=== PATIENT | male | born 1990 | race Asian ===

== ENCOUNTER 2025-07-31 09:59 | Outpatient (REF) | payer OTHER, SELFPAY ==
[2025-07-31 13:22] LABS: Appearance Urine Clear; Glucose Urine UA Negative (Negative); PH 8.0 (5.0-9.0); Specific Gravity - Urine 1.015 (1.005-1.025)
[2025-07-31 13:54] LABS: MANUAL DIFF FLAG NO
[2025-07-31 14:03] LABS: Hematocrit 37.8 % (42.0-52.0); Hemoglobin 13.3 g/dl (14.0-18.0); Imm Gran Abs Auto 0.07 X10*3/uL (0.00-0.03); Imm Gran Pct Auto 1.3 % (0.0-0.4); Lymphocytes Absolute Auto 2.4 X10*3/uL (1.2-4.9); Mean Corpuscular HGB Conc 35.2 g/dl (31.0-36.0); Mean Corpuscular Hemoglobin 32.0 pg (27.0-33.0); Mean Corpuscular Volume 90.9 fL (80.0-98.0); NRBC Abs Auto 0.000 X10*3/uL (0.0-0.012); NRBC Pct Auto 0.0 /100WBC (0.0-0.2); Platelet Count 125 X10*3/uL (160-400); Red Blood Count 4.16 X10*6/uL (4.60-5.80); White Blood Count 5.5 X10*3/uL (4.8-10.8)
[2025-07-31 14:12] LABS: Hemoglobin A1C 111.8142 umol/L
[2025-07-31 14:24] LABS: Alanine Aminotransferase 30 U/L (0-40); Albumin Level 4.5 g/dL (3.5-5.0); Alkaline Phosphatase 52 U/L (39-117); Anion Gap 8 (12-20); Aspartate Amino Transferase 29 U/L (5-37); Blood Urea Nitrogen 10 mg/dL (9-16); Calcium 9.2 mg/dL (8.4-10.2); Carbon Dioxide 30 mmol/L (22-29); Chloride 108 mmol/L (96-108); Cholesterol 172 mg/dL (<200); Estimated Glomerular Filt Rate > 60; HDL Cholesterol 42 mg/dL (>40); Potassium 4.7 mmol/L (3.3-5.1); Sodium 141 mmol/L (135-145); Total Protein 7.1 g/dL (6.5-8.0); Triglycerides 107 mg/dL (<150)
[2025-07-31 15:24] LABS: CT PCR Urine NOT DETECTED (Not Detect.); NG PCR Urine NOT DETECTED (Not Detect.)
[2025-08-02 04:58] LABS: Syphilis Screen Nonreactive (Nonreactive)
[2025-08-02 05:16] LABS: HBsAGNum1 0.43 S/CO (0.00-0.99); HIV Num 1 0.04 S/CO (0.00-0.99); Hepatitis B Surface Antigen Negative (Negative); ~HepC Num1 0.15 S/CO (0.00-0.79); ~Hepatitis B Surface Antibody REACTIVE (Nonreactive); ~Hepatitis C Antibody Nonreactive (Nonreactive)
[2025-08-06 21:13] LABS: Chlamydia Trachomatis IgA <1:16 titer (<1:16)
[2025-08-06 21:58] LABS: VITAMIN D (1,25 OH) D3 48 pg/mL; Vit D (1,25-Dihydroxy) Total 48 pg/mL (18-72); Vitamin D (1,25 OH) D2 <8 pg/mL
== END 2025-07-31 10:00 | disposition home or self-care (01) ==
LOC: HO.HKASLDS 09:59
PROVIDERS: PCP Student in an Organized Health Care Education/Training Program; Visit Provider Student in an Organized Health Care Education/Training Program
DX: Z76.89 Persons encountering health services in other specified circumstances (principal); Z13.9 Encounter for screening, unspecified; R06.83 Snoring; R07.9 Chest pain, unspecified; Z01.89 Encounter for other specified special examinations; Z71.9 Counseling, unspecified; Z13.31 Encounter for screening for depression; Z13.1 Encounter for screening for diabetes mellitus; Z13.220 Encounter for screening for lipoid disorders; Z13.6 Encounter for screening for cardiovascular disorders; F43.21 Adjustment disorder with depressed mood; E66.811 Obesity, class 1; G47.30 Sleep apnea, unspecified; L73.9 Follicular disorder, unspecified
CPT/HCPCS: 80053; 80061; 81003; 82652; 83036; 84443; 85025; 86631; 86632; 86706; 86780; 86803; 87340; 87389; 87491; 87591; 96127

== ENCOUNTER 2025-07-31 09:59 | Outpatient (AMB) | payer OTHER, SELFPAY ==
--- NOTE | 2025-07-31 10:02 | A.OFFPC_ITS ---
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 Accompanied by: Self / Same As Patient Allergies shellfish derived Allergy (Mild, Verified 07/31/25 10:08) Hives Tobacco use date assessed: 07/31/25 Dental Screening Dental Screen Date: 07/31/25 Did you have a dental visit in the last 12 months?: No Did you have a dental problem in the last 6 months where you did not have access to dental care?: No Was dental information given to patient?: No HPI HPI Comments History of Present Illness Details History of Present Illness The patient is a 35-year-old male presenting for a wellness visit and evaluation of potential sleep apnea and other health concerns. Sleep apnea: - Reports heavy snoring and difficulty m aintaining sleep, with occasional dreams of being unable to breathe, suggesting possible sleep apnea. - No episodes of waking up gasping for a ir were reported. Asthma: - History of asthma, not symptomatic rec ently but may be exacerbated by past smoking and vaping. - No current use of an inhaler, but one will be provided for potential future use. Folliculitis: - Experiences recurrent folliculitis bruno und the waistband and thighs, likely due to ingrown hairs. - Advised to keep the area dry and clean , and to seek antibiotics if symptoms worsen. Nicotine dependence: - History of smoking since adolescence, recently transitioned from vaping to nicotine pouches. - Currently attempting to quit nicotine use entirely. Chest pain: - Reports occasional left-sided chest pa in, described as muscular and not reproducible by touch. - An electrocardiogram is planned to ass ess cardiac function. Health Maintenance - Comprehensive lab screening including CBC, CMP, lipid panel, TSH, and STD screening planned. - Home sleep study ordered to evaluate f or sleep apnea. - Advised to maintain dry and clean skin to prevent folliculitis. Review of Systems - Respiratory: Reports heavy snoring and difficulty maintaining sleep. Denies waking up gasping for air. - Cardiovascular: Reports occasional lef t-sided chest pain. Denies reproducibility by touch. - Dermatological: Reports recurrent foll iculitis around the waistband and thighs. 10-point ROS reviewed and negative excep t as noted in HPI Current Substance Use - Nicotine pouches currently used as a s ubstitute for smoking and vaping. Substance Use History - Former smoker, quit smoking cigarettes 1-2 years ago after smoking since adolescence. - Former vaper, quit vaping 4 months ago . Past Medical History - History of asthma, currently asymptoma tic. Family History - Mother: History of thyroid cancer. - Father: History of vascular cancer in the thigh, treated with surgery and chemotherapy. 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 - Formerly worked as a massage therapist . - , recently relocated to [facility]. Physical Exam General: No apparent distress. Alert and oriented x 3. Head: Normocephalic, atraumatic Eyes: Pupils equal, round, and reactive to light. Extraocular movements intact Throat: oropharynx clear. Mucus membranes moist Neck: Supple. No pain. Thyroid checked. left anterior descending artery distention. No jugular vein distention. No bruit. Cardiovascular: Regular rate and rhythm. Normal S1 and S2. Heart sounds good. murmurs, rubs, or gallops Lungs: Clear to auscultation bilaterally. Breath sounds equal bilaterally. No rales, ronchi, or wheezes. Abdomen: Non-tender. Non-distended. Bowel sounds auscultated. No pain.hepatosplenomegaly. No mass/rebound/guarding Extremities: No c lubbing, cyanosis, and edema. 2+ pulses Neuro: Central nerves II-XII grossly intact. Motor/sensory intact. Reflexes 2. Gait normal Skin: Warm, dry, and intact. No rash. Folliculitis discussed, advised to keep dry and clean. Discussion Notes I discussed with the patient the plan to conduct a comprehensive lab screening, including CBC, CMP, lipid panel, TSH, and STD screening. We also discussed the need for a home sleep study to evaluate for sleep apnea and the provision of an inhaler for asthma management. I advised on maintaining skin hygiene to prevent folliculitis and discussed the importance of quitting nicotine use. An electrocardiogram was recommended to assess cardiac function due to reported chest pain. Follow-up was planned to review lab results and discuss further management. Plan 1. Sleep apnea, unspecified G47.30 - A home sleep study was ordered to conf irm the diagnosis of sleep apnea. 2. Unspecified asthma, uncomplicated J45.909 - An inhaler was prescribed for potentia l asthma exacerbations. 3. Follicular disorder, unspecified L73.9 - Advised to maintain dry and clean skin , and to seek antibiotics if symptoms worsen. 4. Nicotine dependence, unspecified, unc omplicated F17.200 - Encouraged to continue efforts to quit nicotine use entirely. 5. Chest pain, unspecified R07.9 - An electrocardiogram was ordered to ev aluate cardiac function due to reported chest pain. INTERCHEST Clinical Prediction Rule for Chest Pain in Primary Care INTERCHEST Score Low risk CAD risk 2.1 % Probability of CAD Patient Instructions - Complete the home sleep study as instr ucted and return the equipment promptly. - Use the inhaler as needed for asthma s ymptoms. - Maintain skin hygiene to prevent folli culitis and seek medical attention if symptoms worsen. - Continue efforts to quit nicotine use. - Follow up for lab results and further discussion on health management. [facility] Family History (Updated 07/31/25 @ 10:12 by Nemesio Gilbert MA) Father Cancer Anxiety Acute depression Mother Thyroid cancer Anxiety Acute depression Social History (Updated 07/31/25 @ 10:04 by Nemesio Gilbert MA) Housing: House Alcohol intake: current Alcohol intake frequency: does not drink Patient Tobacco Use Status: Never used Tobacco Substance Use Type: Marijuana service: No Current occupational status: employed Cognitive needs: No Hearing needs: No Vision needs: No Questionnaire PHQ-9 Over the last 2 weeks, how often have you been bothered by any of the following problems? 1. Little interest or pleasure in doing things: not at all 2. Feeling down, depressed, or hopeless: not at all 3. Trouble falling or staying asleep, or sleeping too much: more than half the days 4. Feeling tired or having little energy: several days 5. Poor appetite or overeating: not at all 6. Feeling bad about yourself - or that you are a failure or have let yourself or your family down: not at all 7. Trouble concentrating on things, such as reading the newspaper or watching television: several days 8. Moving or speaking so slowly that other people could have noticed. Or the opposite - being so fidgety or restless that you have been moving around a lot more than usual: not at all 9. Thoughts that you would be better off or of hurting yourself in some way: not at all Total score: 4 Depression Screening Interpretation: Positive Depression Screening Done: Yes Source: Developed by Drs. Cornelius Linn, Jessenia Jay, Jama Santiago and colleagues, with an educational dave from [employer]. Thrive Questionnaire Date Thrive assessed: 07/31/25 I am a: Patient What is your living situation today?: I have a steady place to live Within the past 12 months, did the food you bought not last and you didn't have the money to get more?: Never true Within the past 12 months, did you worry whether your food would run out before you got money to buy more?: Never true Do you have trouble paying for medicines?: No Do you have trouble getting transportation to medical appointments?: No Do you have trouble paying your heating and electricity bill?: No Do you have trouble taking care of your child, family member or friend?: I choose not to answer this question Are you currently unemployed and looking for a job?: I choose not to answer this question Are you interested in more education?: I choose not to answer this question Please select the resources that you would like help with: None Currently or been in a relationship where the following occur: No concerns reported THRIVE Score: 0 AUDIT C Alcohol Use Questionnaire (AUDIT-C) 1. How often do you have a drink containing alcohol?: Monthly or less 2. How many drinks containing alcohol do you have on a typical day when you are drinking?: 3 or 4 3. How often do you have six or more drinks on one occasion?: Never Total Score: 2 GABE-7 AMB Questionnaire GABE-7 Date GABE - 7 assessed: 07/31/25 Feeling nervous, anxious, or on edge: 0 = Not at all Not being able to stop or control worryin = Not at all Worrying too much about different things: 0 = Not at all Trouble relaxin = Several days Being so restless that it is hard to sit still: 0 = Not at all Becoming easily annoyed or irritable: 1 = Several days Feeling afraid as if something awful might happen: 0 = Not at all Total GABE-7 score (0-4 normal; 5-9 mild; 10-14 moderate; 15-21 severe): 2 Source: Developed by Drs. Cornelius Linn, Jessenia Jay, Jama Santiago and colleagues, with an educational dave from [employer]. Physical exam (Primary Care) Tobacco/Smoking Status: Tobacco use Status Tobacco use date assessed 07/31/25 07/31/25 10:06 Patient Tobacco Use Status Never used Tobacco 07/31/25 10:06 PHQ-9: PHQ-9 Score PHQ-9: Total score 4 07/31/25 10:06 Depression Screening Interpretation: Positive Thrive Assessment: Date of Thrive Assessment Date Thrive assessed 07/31/25 07/31/25 10:06 Currently or been in a relationship where the following occur: No concerns reported Coding Level of Care Code New Pt Level 3 (18348) Diagnoses Encounter to establish care with new provider Z76.89 Routine lab draw Z01.89 Encounter for screening, unspecified Z13.9 Counseling, unspecified Z71.9 Screening for depression Z13.31 Screening for diabetes mellitus Z13.1 Screening for lipoid disorders Z13.220 Hypertension screen Z13.6 Adjustment disorder with depressed mood F43.21 Class 1 obesity E66.811 Sleep apnea G47.30 Snoring R06.83 Folliculitis L73.9 Chest pain R07.9 Assessment & Plan Assessment & Plan (1) Encounter to establish care with new provider: Code(s): Z76.89 - Persons encountering health services in other specified circumstances (2) Routine lab draw: Code(s): Z01.89 - Encounter for other specified special examinations (3) Encounter for screening, unspecified: Code(s): Z13.9 - Encounter for screening, unspecified (4) Counseling, unspecified: Code(s): Z71.9 - Counseling, unspecified (5) Screening for depression: Code(s): Z13.31 - Encounter for screening for depression (6) Screening for diabetes mellitus: Code(s): Z13.1 - Encounter for screening for diabetes mellitus (7) Screening for lipoid disorders: Code(s): Z13.220 - Encounter for screening for lipoid disorders (8) Hypertension screen: Code(s): Z13.6 - Encounter for screening for cardiovascular disorders (9) Adjustment disorder with depressed mood: Code(s): F43.21 - Adjustment disorder with depressed mood (10) Class 1 obesity: Code(s): E66.811 - Obesity, class 1 (11) Sleep apnea: Code(s): G47.30 - Sleep apnea, unspecified (12) Snoring: Code(s): R06.83 - Snoring (13) Folliculitis: Code(s): L73.9 - Follicular disorder, unspecified (14) Chest pain: Code(s): R07.9 - Chest pain, unspecified Plan Orders: Orders Comprehensive Met. Panel Today Z13.9 - Encounter for screening, unspecified, Z76.89 - Persons encountering health services in other specified circumstances Hemoglobin A1c Today Z13.9 - Encounter for screening, unspecified, Z76.89 - Persons encountering health services in other specified circumstances HIV Ab/Ag Today Z13.9 - Encounter for screening, unspecified, Z76.89 - Persons encountering health services in other specified circumstances Lipid Panel Today Z13.9 - Encounter for screening, unspecified, Z76.89 - Persons encountering health services in other specified circumstances Chlamydia Species Ab Panel Today Z13.9 - Encounter for screening, unspecified, Z76.89 - Persons encountering health services in other specified circumstances RT home sleep study Today R06.83 - Snoring ECG 12 lead EKG Today R07.9 - Chest pain, unspecified Complete Blood Count Auto Diff Today Z13.9 - Encounter for screening, unspecified, Z76.89 - Persons encountering health services in other specified circumstances Hepatitis B Surface Antibody Today Z13.9 - Encounter for screening, unspecified, Z76.89 - Persons encountering health services in other specified circumstances Hepatitis B Surface Antigen Today Z13.9 - Encounter for screening, unspecified, Z76.89 - Persons encountering health services in other specified circumstances Hepatitis C Antibody Today Z13.9 - Encounter for screening, unspecified, Z76.89 - Persons encountering health services in other specified circumstances TSH reflex Free T4 Today Z13.9 - Encounter for screening, unspecified, Z76.89 - Persons encountering health services in other specified circumstances UA CC w/rflx Micro + Cult Today Z13.9 - Encounter for screening, unspecified, Z76.89 - Persons encountering health services in other specified circumstances Vitamin D 1,25 dihydroxy Today Z13.9 - Encounter for screening, unspecified, Z76.89 - Persons encountering health services in other specified circumstances CT NG by PCR Urine Today Z76.89 - Persons encountering health services in other specified circumstances Syphilis Screen Today Z76.89 - Persons encountering health services in other specified circumstances Medications: New albuterol sulfate 90 mcg/actuation (Ventolin HFA) 2 puffs inhalation Q6H PRN 8.5 grams 0RF shortness of breath or wheezing
[2025-07-31 10:12] VITALS: BP 98/66; PULSE 71; RESP 16; TEMP 36.6; O2SAT 97; BMI 31.2
--- OUTSIDE RECORDS SUMMARY | 2025-07-31 12:57 | XMS_ITS | Clinical Summary ---
Author Organization [facility] ity Address [address] [place] [address] Care Team Providers Care Poising Inspector Name Role Phone Unavailable Primary Care Provider Unavailabl e Social History Tobacco Use Types Packs/Day Years Used Date Smoking Tobacco: Never Assessed Sex and Gender Information Value Date Recorded Sex Assigned at Not on file Legal Sex Male 5:36 AM EDT Gender Identity Not on file Sexual Orientation Not on file Plan of Treatment Health Maintenance Due Date Last Done Comments Hepatitis B Vaccines (1 of 3 - 19+ 3-dose series) 2011 Depression Screening 11/15/2024 DTaP,Tdap,and Td Vaccines (2 - Td or Tdap) 04/02/2025 04/02/2015 COVID-19 Vaccine (1 - 2023-2 5 season) 2025 Influenza Vaccine (#1) 2025 HIB Vaccines Aged Out No longer eligi ble based on patient's age to complete this topic HPV Vaccines Aged Out No longer eligi ble based on patient's age to complete this topic Hepatitis A Vaccines Aged Out No long er eligible based on patient's age to complete this topic IPV Vaccines Aged Out No longer eligi ble based on patient's age to complete this topic MMR Vaccines Aged Out No longer eligi ble based on patient's age to complete this topic Meningococcal ACWY Vaccine Aged Out N o longer eligible based on patient's age to complete this topic Meningococcal B Vaccine Aged Out No l onger eligible based on patient's age to complete this topic Pneumococcal Vaccine: Pediat rics (0 to 5 Years) and At-Risk Patients (6 to 49 Years) Aged Out No longer eligi ble based on patient's age to complete this topic RSV Immunization Patients Un moreno 20 months Aged Out No longer eligible b ased on patient's age to complete this topic Varicella Vaccines Aged Out No longer eligible based on patient's age to complete this topic
== END 2025-07-31 10:38 | disposition home or self-care (01) ==
LOC: HO.HMCFMS 10:00
PROVIDERS: PCP Student in an Organized Health Care Education/Training Program; Visit Provider Student in an Organized Health Care Education/Training Program
DX: G47.30 Sleep apnea, unspecified (principal); F43.21 Adjustment disorder with depressed mood; Z68.31 Body mass index [BMI] 31.0-31.9, adult; R06.83 Snoring; E66.811 Obesity, class 1; L73.9 Follicular disorder, unspecified; R07.9 Chest pain, unspecified

== ENCOUNTER 2025-08-13 16:01 | Outpatient (AMB) | payer OTHER, SELFPAY ==
[2025-08-13 16:07] VITALS: BP 127/82; PULSE 76; RESP 16; TEMP 36.7; O2SAT 99; BMI 30.6
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
--- OUTSIDE RECORDS SUMMARY | 2025-08-13 18:06 | XMS_ITS | Clinical Summary ---
Author Organization [facility] ity Address [address] [place] [address] Care Team Providers Care Recreation Leader Name Role Phone Unavailable Primary Care Provider [...] 5 season) 2025 Influenza Vaccine (#1) 2025 RSV Immunization Adult Patie nts (1 - 1-dose 75+ series) 2067 HIB Vaccines Aged Out No longer eligi [...]
== END 2025-08-13 16:26 | disposition home or self-care (01) ==
LOC: HO.HMCFMS 16:02
PROVIDERS: PCP Student in an Organized Health Care Education/Training Program; Visit Provider Student in an Organized Health Care Education/Training Program
DX: L73.9 Follicular disorder, unspecified (principal); Z91.013 Allergy to seafood; D61.818 Other pancytopenia; D64.9 Anemia, unspecified; D69.6 Thrombocytopenia, unspecified

== ENCOUNTER 2025-11-05 16:07 | Outpatient (AMB) | payer OTHER, SELFPAY ==
[2025-11-05 16:19] VITALS: BP 125/59; PULSE 95; TEMP 36.7; O2SAT 100
--- NOTE | 2025-11-05 16:19 | A.OFFPC_ITS ---
Vital Signs 11/05/25 16:19 Height 5 ft 11.26 in BP 125/59 L Blood Pressure Location Rt brachial Position Sitting Pulse 95 Pulse Source Pulse Oximeter Temp 98.1 F Temp Source Oral Pulse Oximetry (%) 100 Oxygen Delivery Method Room Air Intake Visit Reasons: 3 month follow up Accompanied by: Self / Same As Patient Allergies shellfish derived Allergy (Mild, Verified 11/05/25 16:19) Hives Medication List - Last Reconciled 11/06/25 by Jose C Dickerson MD albuterol sulfate 90 mcg/actuation (Ventolin HFA) 2 puffs inhalation Q6H PRN mupirocin 2% (Centany) 1 appl topical TID Tobacco use date assessed: 11/05/25 Dental Screening Dental Screen Date: 11/05/25 Did you have a dental visit in the last 12 months?: No HPI HPI Comments History of Present Illness Details History of Present Illness The patient is a 35 year old male presenting with follow-up on a previously low complete blood count and management of recurrent folliculitis. Recurrent Folliculitis: The patient reports recurrent folliculitis on his legs, foot, and seated areas. A previous treatment with an oral antibiotic was effective, but the condition recurred. The lesions can become large, hard, occasionally bleed, and have been painful enough to affect his ability to walk. Abnormal Complete Blood Count: The patient has a history of a complete blood count showing really low numbers from approximately three months ago. He denies any associated symptoms such as infections or bleeding. Medications: - Reports prior use of an oral antibioti c for folliculitis, which was effective. Social History: - Hygiene: Reports regular showering and exfoliation. Diagnostic Results: - Labs: A prior complete blood count ru wed unspecified low numbers. Past Medical History - Recurrent folliculitis - Abnormal complete blood count with uns pecified low values Health Maintenance - A repeat complete blood count is plann ed to monitor previously noted low blood counts. PFSH Medical History Folliculitis Allergy to shellfish Insomnia Family History Father Cancer Anxiety Acute depression Mother Thyroid cancer Anxiety Acute depression Social History Housing: House Alcohol intake: current Alcohol intake frequency: does not drink Patient Tobacco Use Status: Never used Tobacco e-Cigarette/Vaping Use: Never Used Substance Use Type: Marijuana service: No Current occupational status: employed Cognitive needs: No Hearing needs: No Vision needs: No Questionnaire PHQ-9 Over the last 2 weeks, how often have you been bothered by any of the following problems? 1. Little interest or pleasure in doing things: not at all 2. Feeling down, depressed, or hopeless: not at all 3. Trouble falling or staying asleep, or sleeping too much: more than half the days 4. Feeling tired or having little energy: several days 5. Poor appetite or overeating: not at all 6. Feeling bad about yourself - or that you are a failure or have let yourself or your family down: not at all 7. Trouble concentrating on things, such as reading the newspaper or watching television: several days 8. Moving or speaking so slowly that other people could have noticed. Or the opposite - being so fidgety or restless that you have been moving around a lot more than usual: not at all 9. Thoughts that you would be better off or of hurting yourself in some way: not at all Total score: 4 Depression Screening Interpretation: Negative Depression Screening Done: Yes Source: Developed by Drs. Cornelius Linn, Jessenia Jay, Jama Santiago and colleagues, with an educational dave from [employer]. Thrive Questionnaire Date Thrive assessed: 11/05/25 I am a: Patient What is your living situation today?: I have a steady place to live Within the past 12 months, did the food you bought not last and you didn't have the money to get more?: Never true Within the past 12 months, did you worry whether your food would run out before you got money to buy more?: Never true Do you have trouble paying for medicines?: No Do you have trouble getting transportation to medical appointments?: No Do you have trouble paying your heating and electricity bill?: No Do you have trouble taking care of your child, family member or friend?: I choose not to answer this question Are you currently unemployed and looking for a job?: I choose not to answer this question Are you interested in more education?: I choose not to answer this question Currently or been in a relationship where the following occur: No concerns reported THRIVE Score: 0 AUDIT C Alcohol Use Questionnaire (AUDIT-C) 1. How often do you have a drink containing alcohol?: Monthly or less 2. How many drinks containing alcohol do you have on a typical day when you are drinking?: 3 or 4 3. How often do you have six or more drinks on one occasion?: Never Total Score: 2 GABE-7 AMB Questionnaire GABE-7 Date GABE - 7 assessed: 11/05/25 Feeling nervous, anxious, or on edge: 0 = Not at all Not being able to stop or control worryin = Not at all Worrying too much about different things: 0 = Not at all Trouble relaxin = Several days Being so restless that it is hard to sit still: 0 = Not at all Becoming easily annoyed or irritable: 1 = Several days Feeling afraid as if something awful might happen: 0 = Not at all Total GABE-7 score (0-4 normal; 5-9 mild; 10-14 moderate; 15-21 severe): 2 Source: Developed by Drs. Cornelius Linn, Jessenia Jay, Jama Santiago and colleagues, with an educational dave from [employer]. Review of Systems Narrative Review of Systems - Integumentary: Reports recurrent, painful lesions on the legs, foot, and seated areas. - He notes they can become large, hard, and occasionally bleed. - Hematologic/Lymphatic: Denies bleeding or infections. 10-point ROS reviewed and negative except as noted in HPI Physical exam (Primary Care) Vital Signs: Last Vital Signs Temp 98.1 F 11/05/25 16:19 Pulse 95 11/05/25 16:19 BP 125/59 L 11/05/25 16:19 Pulse Ox 100 11/05/25 16:19 Oxygen Delivery Method Room Air 11/05/25 16:19 Tobacco/Smoking Status: Tobacco use Status Tobacco use date assessed 11/05/25 11/05/25 16:24 Patient Tobacco Use Status Never used Tobacco 11/05/25 16:24 e-Cigarette/Vaping Use Never Used 11/05/25 16:24 PHQ-9: PHQ-9 Score PHQ-9: Total score 4 11/05/25 22:29 Depression Screening Interpretation: Negative Thrive Assessment: Date of Thrive Assessment Date Thrive assessed 11/05/25 11/05/25 16:24 Currently or been in a relationship where the following occur: No concerns reported Narrative Physical Exam General: Well-appearing, in no acute distress. Vital signs: Within normal limits. HEENT: Normocephalic, atraumatic. PERRLA, EOMI. Conjunctiva clear, sclera anicteric. Oropharynx clear, mucous membranes moist. TMs intact bilaterally. Neck: Supple, no lymphadenopathy, no thyromegaly, no JVD or carotid bruits. Cardiovascular: RRR, normal S1/S2, no murmurs, rubs, or gallops. Peripheral pulses 2+ and symmetric. No edema. Respiratory: Lungs clear to auscultation bilaterally, no wheezes, rales, or rhonchi. Normal effort. Abdomen: Soft, non-tender, non-distended. Normoactive bowel sounds. No hepatosplenomegaly, no masses. MSK: Full range of motion, no joint swelling or deformity. Normal gait. Skin: Warm, dry, intact. Recurrent folliculitis noted on legs, with some lesions becoming large and painful. No rashes or pallor. Neuro: Alert and oriented x3. Cranial nerves II-XII intact. Strength 5/5 throughout. Sensation intact. Reflexes 2+ symmetric. Normal coordination and gai t. Psych: Appropriate mood and affect. Normal judgment and insight. Office Procedures Flu Questionnaire Does the patient have a severe egg allergy?: No Does the patient have severe life threatening allergies?: No Does the patient have a fever or illness today?: No Has the patient ever had Guillain-Velma Syndrome?: No Has the patient ever had any past reaction to a flu shot?: No Immunizations Fluarix [id number] (PF) 45 mcg (15 mcg x 3)/0.5 mL IM syringe Performing Provider: Jose C Dickerson MD Performing Location: [facility] Documented (not given) by: Chika Oseguera CMA on 11/05/25 16:25 Reason Not Given: Patient Refused Coding Level of Care Code Est Pt Level 3 (27221) Add On Problem Visit Only Diagnoses Pancytopenia D61.818 Folliculitis L73.9 Assessment & Plan Assessment & Plan (1) Pancytopenia: Code(s): D61.818 - Other pancytopenia Category: Medical (2) Folliculitis: Code(s): L73.9 - Follicular disorder, unspecified Category: Medical Plan Consent Patient was informed and verbally consented to the use of an ambient scribe for clinic note documentation during this visit. Plan 1. Recurrent Folliculitis - A referral will be placed to Dermatology for further evaluation and management. - Prescribed mupirocin 2% ointment to apply to the affected areas 2-3 times a day for up to 10 days. - A refill will be provided if needed before the dermatology appointment is scheduled. 2. Abnormal Complete Blood Count - Ordered repeat blood work to re-evaluate the complete blood count. - If the blood count remains low, a referral will be made to Hematology for further investigation. Discussion Notes I discussed the patient's concern about recurrent folliculitis. I explained that given the recurrent nature of his symptoms, a referral to a spanish instructor is the best course of action for a long-term management plan. In the interim, I have prescribed mupirocin cream for him to apply to the lesions. We also reviewed the plan to repeat his complete blood count due to previously low numbers. I informed him that if the results are still low, I will refer him to a web content & social media manager to ensure there are no underlying blood disorders. The patient understood the plan and agreed to the blood draw and referrals. Patient Instructions - Go to the lab for a blood draw to check your blood count. - You can walk in at any time to have this done. - technical support internship the mupirocin cream from your pharmacy. - Apply a small amount of the cream to the affected skin spots 2 to 3 times per day for up to 10 days. - If you run out of the cream before your specialist appointment, please let me know for a refill. - The dermatology office will call you to schedule an appointment. Medical Decision Making The patient is a 35-year-old male presenting for follow-up of a low complete blood count and for management of recurrent folliculitis. His folliculitis has been persistent and bothersome, with prior oral antibiotic treatment providing only temporary relief. Given the recurrence and formation of large, hard lesi ons, a dermatology referral is indicated for specialized, long-term management. In the interim, topical mupirocin 2% ointment is prescribed to treat active lesions. The history of a low CBC necessitates a follow-up blood draw to assess for persistence. The patient is asymptomatic, denying bleeding or infections, but if the cytopenia is confirmed on repeat testing, a hematology consultation will be initiated to rule out an underlying hematologic disorder. Total Time Statement 20 min Total time spent caring for the patient today includes pre-visit chart review, documentation, review of laboratory and diagnostic imaging results, medication reconciliation, medically necessary evaluation, counseling on diagnoses, care coordination, ordering appropriate tests and medications, review of tests pe rformed by other providers, reporting test results to the patient, and communication with other healthcare providers. Orders: Orders Complete Blood Count Auto Diff 11/05/25 D61.818 - Other pancytopenia Influenza [id number] Immunization 11/05/25 Z23 - Encounter for immunization Referrals Dermatology Referral L73.9 - Follicular disorder, unspecified Medications: New mupirocin 2% (Centany) 1 appl topical TID 22 grams 1RF
--- OUTSIDE RECORDS SUMMARY | 2025-11-05 18:45 | XMS_ITS | Clinical Summary ---
Author Organization [facility] ity Address [address] [place] [address] Care Team Providers Care Tool Drawing Checker Name Role Phone Unavailable Primary Care Provider [...] of 3 - 19+ 3-dose series) 2011 HPV Vaccines (1 - 3-dose SCD M series) 2019 Depression Screening 11/15/2024 DTaP,Tdap,and Td Vaccines (2 - Td or Tdap) 04/02/2025 04/02/2015 COVID-19 Vaccine (1 - 2024-2 6 season) 2025 Influenza Vaccine (#1) 2025 RSV [...]
== END 2025-11-05 16:31 | disposition home or self-care (01) ==
LOC: HO.HMCFMS 16:08
PROVIDERS: PCP Student in an Organized Health Care Education/Training Program; Visit Provider Student in an Organized Health Care Education/Training Program
DX: Z23 Encounter for immunization (principal)

== ENCOUNTER → 2025-11-05 16:07 | Outpatient (BNVA) | payer OTHER, SELFPAY | PROVIDERS: PCP Student in an Organized Health Care Education/Training Program; Visit Provider Student in an Organized Health Care Education/Training Program | DX: D61.818 Other pancytopenia (principal); L73.9 Follicular disorder, unspecified; Z28.21 Immunization not carried out because of patient refusal | CPT/HCPCS: 90471; 96127 ==